=== PATIENT | female | born 1965 | race Caucasian/White ===

== ENCOUNTER 2017-12-30 06:21 | Day surgery (SDC) | END 2017-12-30 10:31 | disposition home or self-care (01) ==

== ENCOUNTER → 2019-01-12 | Outpatient (CLI) | payer OTHER ==
[~2019-01-12] MED LIST: NOL20 PO; OMEG1CAP22
== END | disposition home or self-care (01) ==
LOC: U/S 08:28
PROVIDERS: ATTEND Internal Medicine Hematology & Oncology
DX: C50.919 Malignant neoplasm of unspecified site of unspecified female breast (principal); R79.89 Other specified abnormal findings of blood chemistry
CPT/HCPCS: 76700